=== PATIENT | male | born 1955 | race Caucasian/White ===

== ENCOUNTER 2025-08-13 16:20 | Emergency (ER) | payer MEDICARE, MEDICAID, SELFPAY ==
[2025-08-13] VITALS (11 sets, daily range): BP systolic 92–126; BP diastolic 57–87; PULSE 83–150; RESP 18–26; TEMP 36.5–36.6; O2SAT 90–96; BMI 29.7
--- NOTE | 2025-08-13 16:31 | XR_ITS ---
Examination: CT cervical spine without contrast 2-D sagittal reconstructions 2-D coronal reconstructions 3-D reconstructions. Exam date and time: August 13, 2025, 1758 hours INDICATIONS: Ground-level fall today with injury to the neck, neck pain CTDI:vol (mGy) 70.1 DLP: (mGycm) 387 Technique: Multiple 2 mm axial sections of the cervical spine have been obtained. The coronal and sagittal reconstructions have been obtained. 3-D reconstructions have been obtained. Low dose protocols were performed. One or more of the following dose reduction techniques were used; automated exposure control, adjustment of the mA and/or KV according to patient size, use of iterative reconstruction technique. Findings: Axial sections demonstrate intact base of the skull. C1 exhibit satisfactory relationship to the odontoid. No acute cervical vertebral body fracture seen. Alignment posterior spinous processes satisfactory. Impression: No acute cervical fracture.
--- NOTE | 2025-08-13 16:31 | XR_ITS ---
EXAMINATION: AP chest single view TECHNIQUE: AP portable semiupright chest single view Date and time: August 13, 2025, 1702 hours INDICATIONS: Chest pain shortness of breath beginning today. FINDINGS: Mild heart failure Mild to moderate enlargement left ventricle. Prominent vascular congestion with early perihilar basilar edema. Mild osteopenia. Advanced right glenohumeral joint osteoarthritis IMPRESSION: Mild heart failure
--- NOTE | 2025-08-13 16:31 | EKG_ITS ---
[facility] Test Date: 2025-08-13 Pat Name: ADELINA GAMEZ Department: Room: - Gender: Male Park Services Specialist: : 1955 Requested By: Yuval Croft Order Number: [id number] Reading MD: Yuval Croft Measurements Intervals [place] Rate: 150 P: [place]: QRS: 45 QRSD: 165 T: -52 QT: 306 QTc: 483 Interpretive Statements ATRIAL FLUTTER/TACHYCARDIA WITH RAPID VENTRICULAR RESPONSE RIGHT BUNDLE BRANCH BLOCK [120+ ms QRS DURATION, UPRIGHT V1, 40+ ms S IN I/aVL/V4/V5/V6] SEPTAL MYOCARDIAL INFARCTION , OF INDETERMINATE AGE [40+ ms Q WAVE IN V1/V2] ST ELEVATION, CONSIDER ANTERIOR INJURY [MARKED ST ELEVATION W/O NORMALLY INFLECTED T-WAVE IN V2-V5] ACUTE [place] Compared to ECG 08/04/2022 19:26:52 Right bundle-branch block now present Myocardial infarct finding now present ST (T wave) deviation now present Sinus rhythm no longer present /store/S0/[id number].pdf
--- NOTE | 2025-08-13 16:31 | XR_ITS ---
Examination: CT brain head without contrast. 2-D sagittal coronal reconstructions Date and time of exam: August 13, 2025, 1758 hours INDICATIONS: Ground-level fall today with injury to the head, head pain CTDI: vol (mGy): 58.7 DLP: (mGycm): 1268 Technique: Multiple CT axial sections of the brain have been obtained, 5 mm slice thickness. Contrast has not been administered. 2-D sagittal, coronal reconstructions have been obtained Low dose protocols were performed. One or more of the following dose reduction techniques were used; automated exposure control, adjustment of the mA and/or KV according to patient size, use of iterative reconstruction technique. Findings: Small areas of subarachnoid hemorrhage right frontal sulci, axial image 10-14, coronal image 30. No ventricular hemorrhage. Ventricles are normal in size Fourth ventricle midline Cranial vault intact IMPRESSION: Small areas of subarachnoid hemorrhage right frontal sulci Recommend close clinical observation and consider repeat CT brain scan in the a.m.
--- NOTE | 2025-08-13 16:44 | PC.NURSE ---
MISHEL FROM HOME FOR COLLAR BONE PAIN, FROM A FALL A FEW DAYS AGO, PER PT HE WAS GETTING OFF BED AND TRIPPED ON SOMETHING. WHILE IN AMBULANCE BAY PROVIDER NOTICED PT IS ADawnFIB RVR. IV PLACED, EKG OBTAINED, WILL CONT W/POC
--- NOTE | 2025-08-13 16:49 | PD.EDADULT ---
ED General RME/HPI General Chief complaint: Extremity Injury, Upper Stated complaint: COLLAR BONE PAIN Time Seen by Provider: 08/13/25 16:30 Arrival date/time: 08/13/25 16:20 CC: Left shoulder chest pain HPI onset after a ground-level fall 3 days ago. Patient said he cannot get comfortable anymore and then starting this morning began to feel crappy . The patient has no energy denies any additional chest pain shortness of breath or difficulty breathing. EMS report accelerated heart rhythm otherwise stable blood pressure patient denies nausea difficulty breathing. Patient takes no medications has no allergies smokes a pack of cigarettes a day does not drink alcohol uses marijuana occasionally. Related Data Home Medications ?Medication ?Instructions ?Recorded ?Confirmed No Known Home Medications 09/25/22 09/25/22 Allergies Allergy/AdvReac Type Severity Reaction Status Date / Time No Known Allergies Allergy Verified 08/13/25 16:41 Review of Systems Review of Systems Narrative Review of Systems: GEN: No fever, no chills, no weight loss EYES: No discharge, no visual changes, no pain HEENT: No ear pain, no congestion, no sore throat PULM: No shortness of breath, no cough, no congestion CV: + chest pain, no dyspnea on exertion, no palpitations GI: No nausea, no vomiting, no diarrhea, no pain, no constipation : No frequency, no urgency, no dysuria MUSC/SKEL: No joint pain, no back pain SKIN: No rash PSYCH: No hallucinations, no depression HEME/LYMPH: No easy bleeding or bruising tendencies NEURO: No weakness, no headache Past Medical History Past Medical History NEUROLOGIC: Negative Neurological Disorders or Seizures CARDIAC: Positive Cellulitis (FOR I&D OF RIGHT KNEE REDDENED AND SWOLLEN); Negative Cardiac Disorders, Congestive Heart Failure or Edema RESPIRATORY: Negative Chronic Obstructive Pulmonary Disease (COPD), Tuberculosis, Pulmonary Embolism or Sleep Apnea GASTROINTESTINAL: Negative Gastrointestinal Disorders or Hepatitis GENITOURINARY: Negative Genitourinary Disorders or Renal Disease MUSCULOSKELETAL: Positive Musculoskeletal Disorders and Arthritis ENDOCRINE: Negative Endocrine Disorders, Diabetes Mellitus Type 1 or Diabetes Mellitus Type 2 HEMATOLOGIC: Negative Blood Disorders OTHER HISTORY: Negative Hospitalization, Autoimmune Disease, Shingles, Falls, Blood Transfusions, Blood Transfusion Reaction, Anesthesia Reactions, Chemotherapy, Radiation Therapy, MRSA, Chicken Pox, Measles, Mumps or Cancer Family History FAMILY HISTORY: Positive Family Respiratory Disorders (BROTHER (COPD)) and Family Surgery (BROTHER); Negative Family Psychiatric Problems, Family Cardiac Disorders, Family Gastrointestinal Problems, Family Cancer or Family Anesthesia Reaction Surgical History SURGICAL: Negative Pacemaker Social History SMOKING STATUS: Current every day smoker ED Exam Narrative Physical exam: [General: Moderate discomfort not in any acute distress Head normocephalic no step-offs hematomas, no depressions. HEENT: Eyes pupils are PERRLA EOMs are intact mouth [place] dry membranes uvula is midline swallow symmetrical phonation is normal. No raccoon's eyes or Melchor sign. No facial asymmetry or bogginess. No rhinorrhea or otorrhea. Neck is supple nontender, no JVD no edema Chest equal chest rise nontender to palpation Respiratory: Clear to auscultation no wheezes crackles or rubs CV: Rate rhythm is irregular, accelerated, no murmurs rubs or clicks Abdomen is distended secondary to body habitus soft nontender no masses positive bowel sounds all 4 quadrants Back: No CVA tenderness no spinous process tenderness from cervical spine thoracic and lumbar spine Skin: Intact no petechiae rash induration ulceration or crepitus Extremities: Moving all extremity against resistance cap refill less than 2 seconds neurosensory intact Neuro: Awake alert oriented x3 Glascow coma 15 no focal deficits] Course Course Course Narrative: Patient's case discussed with Dr. Ann Orr who agrees to accept in consult for cardiology requesting a heparin drip once the patient has been cleared. CT of the head shows small subarachnoid hemorrhage in the right frontal sulci. Discussed with the patient he is agreeable to transfer for neurosurgical services, will not start the heparin drip. Note: The patient states he did did not hit his head at the time of the fall. Patient declined from [facility] neurosurgical services for admission. Patient accepted at [facility] by Dr. Phillips. Reassessment of the patient at 2045 shows the patient has had no deterioration in neurologic status is awake alert oriented minimal left shoulder pain. Heart rate is manage between 90 and 110 pressures remain soft in the 90-100 systolic. Patient has no other additional complaints. Quality Measures none Orders Category Date Time Status EKG (ED ONLY) *Do not use* NOW Care 08/13/25 16:31 Completed EKG (ED ONLY) *Do not use* NOW Care 08/13/25 17:07 Completed EKG (ED ONLY) *Do not use* NOW Care 08/13/25 18:46 Completed Notify provider NOW Care 08/13/25 17:33 Completed Consult to Cardiology Stat Cons 08/13/25 17:32 Ordered Transfer to another facility [Transfer/Discharge] Stat Discharge 08/13/25 20:48 Active CA echo doppler complete Stat Exams 08/13/25 18:[address] cervical spine wo con Stat Exams 08/13/25 16:[address] head/brain wo con Stat Exams 08/13/25 16:31 Completed EKG (ED Only) Stat Exams 08/13/25 16:31 Draft EKG (ED Only) Stat Exams 08/13/25 17:07 Draft EKG (ED Only) Stat Exams 08/13/25 18:46 Ordered XR chest 1V Stat Exams 08/13/25 16:31 Completed B-Type Natriuretic Peptide Stat Lab 08/13/25 16:40 Completed CBC Stat Lab 08/13/25 16:40 Completed Comprehensive Metabolic Panel Stat Lab 08/13/25 16:40 Completed Drug Screen,Urine Stat Lab 08/13/25 20:51 Completed LDH (Lactate Dehydrogenase) Stat Lab 08/13/25 16:40 Completed Magnesium Stat Lab 08/13/25 16:40 Completed Partial Thromboplastin Time Stat Lab 08/13/25 16:40 Completed Prothrombin Time with INR Stat Lab 08/13/25 16:40 Completed Troponin I Stat Lab 08/13/25 16:40 Completed Urinalysis, C/S if Indicated Stat Lab 08/13/25 20:36 Completed Urine Culture Stat Lab 08/13/25 20:36 Received Aspirin Chew Med 08/13/25 17:23 Discontinued 324 mg PO X1 ONE DILTIAZEM in NS 100 MG Med 08/13/25 16:41 Discontinued 100 mg in 100 ml IV 5 mg/hr Diltiazem Inj [Cardizem Inj] Med 08/13/25 18:26 Discontinued 20 mg IV X1 ONE Diltiazem Inj [Cardizem Inj] Med 08/13/25 16:41 Discontinued 25 mg IV X1 ONE Morphine* Inj Med 08/13/25 17:07 Discontinued 4 mg IVP X1 ONE Ondansetron Inj [Zofran Inj] Med 08/13/25 17:07 Discontinued 4 mg IVP X1 ONE Sodium Chloride 0.9% 1000 ml [Ns] 1,000 ml Med 08/13/25 17:09 Discontinued IV 999 mls/hr cefTRIAXone/D5w 1gm IV premix [Rocephin/D5w 1gm IV Med 08/13/25 17:46 Discontinued premix] 1 gm in 50 ml IV X1 Vital Signs Vital signs: Vital Signs Temperature 97.9 F 08/13/25 16:24 Pulse Rate 150 H 08/13/25 16:24 Respiratory Rate 18 08/13/25 16:24 Blood Pressure 121/85 H 08/13/25 16:24 Pulse Oximetry (%) 94 L 08/13/25 16:24 Oxygen Delivery Method Room Air 08/13/25 16:24 Discharge Plan Plan Patient Disposition: Admit Acute Care w/in Hospital Patient condition on transfer: Stable Prescriptions/Referrals Prescriptions/Med Rec: No Action No Known Home Medications Referrals: No Primary/Family,Physician [Primary Care Provider] - In 1 week Problem List Clinical Impression: Subarachnoid hemorrhage, Atrial flutter with rapid ventricular response, Elevated troponin, Thrombocytopenia, Elevated INR Patient/Caregiver Discharge Instructions Print Language: Mexican Stand Alone Forms: [employer] Award Info., Patient Portal Info Letter MDM Clinical Information Provided by: patient and EMS Medical Records reviewed [facility] and EMS Meds/Rx considered, not ordered None Labs/Rad/Tests considered, not ordered None Chronic Illness/Social Conditions Explain: No meds no allergies not been seen by a doctor in some time . Last admission was 2021 for septic arthritis. Patient continues to follow-up with Dr. Rudd EKG Interpretation EKG #1: EKG Interpretation: EKG performed at 1636 shows a ventricular rate of 150 with a QRS of 165 QTc of 391 this is a fib RVR right bundle branch block. Questionable ST segment elevations in lateral leads. Labs Labs: interpreted by nj Lab(s) Interpretation(s): CBC shows leukocytosis of 15.7 hemoglobin of 16.8 hematocrit of 48.0 platelets of 65 PT of 17.2 INR 1.7 PTT of 34.7 Sodium 135 CO2 of 16.5 BUN of 54 creatinine 1.3 glucose of 136 no other electrolyte imbalances or renal impairment T. bili at 2.4 AST 127 ALT 51 alk phos at 109 LDH of 411 Troponin at 8.258 BNP at 841 Imaging Imaging interpretation: interpreted by nj Imaging Interpretation(s): Check x-ray questionable pneumonia. CT of the head shows small subarachnoid hemorrhage in the right frontal sulcus I CT C-spine is negative. Medication Administration(s) Medication Administration History Discontinued Medications Aspirin (Aspirin 81 Mg Chew) 324 mg PO X1 ONE Stop: 08/13/25 17:24 Last Admin: 08/13/25 17:33 Dose: 324 mg Documented By: TM Diltiazem HCl (Diltiazem Inj 5 Mg/Ml Vial 5 Ml) 25 mg IV X1 ONE Stop: 08/13/25 16:42 Last Admin: 08/13/25 16:52 Dose: 25 mg Documented By: TM Diltiazem HCl (Diltiazem Inj 5 Mg/Ml Vial 5 Ml) 20 mg IV X1 ONE Stop: 08/13/25 18:27 Last Admin: 08/13/25 18:39 Dose: 20 mg Documented By: TM Diltiazem/Sodium Chloride (Diltiazem In Ns 100 Mg) 100 mg in 100 mls @ 5 mls/hr IV .Q20H IESHA; Protocol Stop: 09/12/25 16:40 Last Titration: 08/13/25 20:40 Dose: 15 mg/hr, 15 mls/hr Documented By: Titration: 08/13/25 19:27 Dose: 15 mg/hr, 15 mls/hr Documented By: Titration: 08/13/25 17:54 Dose: 15 mg/hr, 15 mls/hr Documented By: Titration: 08/13/25 17:39 Dose: 15 mg/hr, 15 mls/hr Documented By: Titration: 08/13/25 17:24 Dose: 15 mg/hr, 15 mls/hr Documented By: Titration: 08/13/25 17:09 Dose: 10 mg/hr, 10 mls/hr Documented By: Admin: 08/13/25 16:54 Dose: 5 mg/hr, 5 mls/hr Documented By: TM Sodium Chloride (Ns) 1,000 mls @ 999 mls/hr IV .Q1H1M ONE Stop: 08/13/25 18:09 Last Infusion: 08/13/25 18:10 Dose: Infused Documented By: Admin: 08/13/25 17:09 Dose: 999 mls/hr Documented By: TM Ceftriaxone Sodium/Dextrose (Rocephin/D5w 1gm Iv Premix) 1 gm in 50 mls @ 100 mls/hr IV X1 ONE Stop: 08/13/25 18:15 Last Infusion: 08/13/25 18:41 Dose: Infused Documented By: Admin: 08/13/25 18:11 Dose: 100 mls/hr Documented By: TM Morphine Sulfate (Morphine Sulf Inj 4 Mg/Ml Vial) 4 mg IVP X1 ONE Stop: 08/13/25 17:08 Last Admin: 08/13/25 17:32 Dose: 4 mg Documented By: TM Ondansetron HCl (Ondansetron Inj 2 Mg/Ml Inj 2 Ml) 4 mg IVP X1 ONE; Protocol Stop: 08/13/25 17:08 Last Admin: 08/13/25 17:32 Dose: 4 mg Documented By: TM Diagnosis Differential Diagnosis ED Complaint MDM: ACS [place] pneumonia subarachnoid hemorrhage
[2025-08-13] MEDS: DILTIAZEM INJ 5 MG/ML VIAL 5 ML 25 MG IV (16:52)
[2025-08-13] MEDS: DILTIAZEM in NS 100 MG 100 MG/100 ML BAG IV (16:54)
[2025-08-13 16:59] LABS: Basophils # (Auto) 0.0 Thou/mm3 (0.0-0.2); Basophils % (Auto) 0 % (0-2.5); Eosinophils # (Auto) 0.0 Thou/mm3 (0.0-0.5); Eosinophils % (Auto) 0 % (0-10); Hematocrit 48.0 % (41.0-53.0); Hemoglobin 16.8 g/dL (13.5-16.0); Immature Granulocytes Auto 0.79 Thou/mm3 (0.00-0.00); Lymphocytes # (Auto) 0.5 Thou/mm3 (1.0-4.8); Lymphocytes % (Auto) 3 % (10-50); Mean Corpuscular HGB Conc 35.0 g/dl (31.0-37.0); Mean Corpuscular Hemoglobin 31.0 pg (25.0-35.0); Mean Corpuscular Volume 89 fL (80-100); Monocytes # (Auto) 1.1 Thou/mm3 (0.0-0.8); Monocytes % (Auto) 7 % (0-12); Neutrophils # (Auto) 13.3 Thou/mm3 (1.8-7.7); Neutrophils % (Auto) 85 % (37-80); Nucleated Red Blood Cell # 0.00 Thou/mm3 (0.00-0.00); Nucleated Red Blood Cell % 0 /100 WBC (0); RDW Standard Deviation 52.2 fL (35.1-43.9); Red Blood Count 5.42 Miln/mm3 (4.50-5.90); White Blood Count 15.7 Thou/mm3 (3.8-10.6)
[2025-08-13 17:05] LABS: Platelet Count 65 Thou/mm3 (140-440)
--- NOTE | 2025-08-13 17:07 | EKG_ITS ---
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1955 Requested By: Yuval Croft Order Number: [id number] Reading MD: Yuval Croft Measurements Intervals [place] Rate: 93 P: [place]: QRS: -12 QRSD: 161 T: -69 QT: 356 QTc: 443 Interpretive Statements ATRIAL FLUTTER/TACHYCARDIA INDETERMINATE AXIS RIGHT BUNDLE BRANCH BLOCK [120+ ms QRS DURATION, UPRIGHT V1, 40+ ms S IN I/aVL/V4/V5/V6] SEPTAL MYOCARDIAL INFARCTION , PROBABLY OLD [40+ ms Q WAVE IN V1/V2] MODERATE T-WAVE ABNORMALITY, CONSIDER INFERIOR ISCHEMIA [-0.1+ mV T-WAVE IN II/aVF] Compared to ECG 08/13/2025 16:36:19 Indeterminate axis now present T-wave abnormality now present Possible ischemia now present ST (T wave) deviation no longer present Myocardial infarct finding still present /store/S0/[id number]/[id number].pdf
[2025-08-13] MEDS: SODIUM CHLORIDE 0.9% 1000 ML 1,000 ML 999 ML IV (17:09)
[2025-08-13 17:10] LABS: INR 1.7 (0.9-1.3); Partial Thromboplastin Time 34.7 Seconds (22.0-36.0); Prothrombin Time 17.2 Seconds (9.0-12.2)
--- NOTE | 2025-08-13 17:13 | PC.NURSE ---
provider Ordonez at bedside gave verbal to keep SBP >90 when increasing/titrating dilt gtt
[2025-08-13 17:17] LABS: Alanine Aminotransferase 51 U/L (10-49); Albumin, Serum 3.5 gm/dL (3.4-4.8); Albumin/Globulin Ratio 1.0 (1.2-2.2); Alkaline Phosphatase 109 U/L (46-116); Anion Gap 16 (7-16); Aspartate Amino Transferase 127 U/L (0-34); BUN/Creatinine Ratio 42 Ratio (12-20); Bilirubin,Total 2.4 mg/dL (0.3-1.2); Blood Urea Nitrogen 54 mg/dL (9-23); Calcium 8.3 mg/dL (8.3-10.6); Calcium (Corrected) 8.7 mg/dL (8.5-10.1); Carbon Dioxide 16.5 mMol/L (20.0-31.0); Chloride 103 mMol/L (98-107); Creatinine (Component) 1.3 mg/dL (0.6-1.3); Estimated Creatinine Clearance 66.4 mL/min (>60); Globulin 3.4 gm/dL (2.3-3.5); Glucose 136 mg/dL (74-106); LDH (Lactate Dehydrogenase) 411 U/L (120-246); Magnesium 2.2 mg/dL (1.6-2.6); Osmolality,Calculated 286 (275-295); Potassium 3.8 mMol/L (3.4-5.1); Sodium 135 mMol/L (136-145); Total Protein 6.9 gm/dL (5.7-8.2); eGFR 59 See Note
[2025-08-13 17:18] LABS: Slide Review Platelets confirmed
[2025-08-13 17:21] LABS: Troponin I 8.258 ng/mL (0.0-0.045)
[2025-08-13 17:22] LABS: Band Neutrophils (Manual) 32 % (0-6); Lymphocytes (Manual) 5 % (20-44); Metamyelocytes (Manual) 2 % (0-0); Monocytes (Manual) 3 % (2-9); Neutrophils (Manual) 58 % (50-70)
[2025-08-13 17:28] LABS: B-Type Natriuretic Peptide 841 pg/mL (0-100)
[2025-08-13] MEDS: MORPHINE SULF INJ 4 MG/ML VIAL IVP (17:32)
[2025-08-13] MEDS: ONDANSETRON INJ 2 MG/ML INJ 2 ML 4 MG IVP (17:32)
[2025-08-13] MEDS: ASPIRIN 81 MG CHEW 324 MG PO (17:33)
[2025-08-13] MEDS: cefTRIAXone/D5w 1gm IV premix 1 GM/50 ML BAG IV (18:11)
[2025-08-13] MEDS: DILTIAZEM INJ 5 MG/ML VIAL 5 ML 20 MG IV (18:39)
--- NOTE | 2025-08-13 18:46 | EKG_ITS ---
[facility] Test Date: 2025-08-13 Pat Name: ADELINA GAEMZ Department: Room: - Gender: Male Customer Consultant: : 1955 Requested By: Yuval Croft Order Number: [id number] Reading MD: Yuval Croft Measurements Intervals [place] Rate: 124 P: [place]: QRS: 17 QRSD: 170 T: -49 QT: 352 QTc: 507 Interpretive Statements ATRIAL FLUTTER/TACHYCARDIA WITH RAPID VENTRICULAR RESPONSE RIGHT BUNDLE BRANCH BLOCK [120+ ms QRS DURATION, UPRIGHT V1, 40+ ms S IN I/aVL/V4/V5/V6] SEPTAL MYOCARDIAL INFARCTION , OF INDETERMINATE AGE [40+ ms Q WAVE IN V1/V2] MODERATE T-WAVE ABNORMALITY, CONSIDER INFERIOR ISCHEMIA [-0.1+ mV T-WAVE IN II/aVF] Compared to ECG 08/13/2025 16:36:19 T-wave abnormality now present Possible ischemia now present ST (T wave) deviation no longer present Myocardial infarct finding still present /store/S0/[id number]/ecg/[id number].pdf
--- NOTE | 2025-08-13 19:03 | PD.RESCONSUL ---
HPI Data of Consult Patient: new to practice Consult date: 08/13/25 Primary Care Provider: Physician No Primary/Family Consult Narrative Reason for consult: Afib with RVR and elevated troponins History of present illness: Patient is a 70-year-old male with past medical history of right knee surgery, tobacco use, marijuana use, hep C who presents to the ED on 08/13/2025 for worsening left clavicular pain after fall at home 3 days ago. Describes pain as sharp, worse when he moves, and constant over the past couple of days. Patient denies chest pain, shortness of breath, or palpitations. Denies any personal or family cardiac history. Denies any history of hypertension or hyperlipidemia. Denies any prior similar previous episodes of pain. Reports that he has been well-hydrated, has been drinking Pedialyte as well. Does not follow with a PCP, last saw PCP at [facility], Dr. Paz. Does not take any medications. In ED, BP 121/85, HR 150, patient was afebrile. Saturating 94% on room air. WBC 15.7, hemoglobin 16.8, platelets 65. PT 17.2, INR 1.7, PTT 34.7. Sodium 135, potassium 3.8, bicarb 16.5, BUN 54, creatinine 1.3, magnesium 2.2, total bili 2.4, AST 127, ALT 51. LDH 411, troponin 8.258, BNP 841. Pending UTOX. EKG showed atrial flutter with RVR, as well as right bundle branch block. HR 150. Repeat EKG shows atrial flutter with HR improved to [address] cervical spine negative.Chest x-ray shows mild heart failure with mild to moderate enlargement of left ventricle and pulmonary vascular congestion with early perihilar basilar edema. CT head shows small area of subarachnoid hemorrhage in right frontal sulci. Cardiology was consulted for atrial flutter with RVR. Past Medical History: As above Family History: No known family history of cardiac disease. Surgical History: Right knee surgery and September 2022. Social History: Smokes 1 pack/day for the past 50 years, drinks of beer every 2 to 3 months with a past 50 years. Smoked marijuana daily for the past 50 years. Denies any other illicit drug use. Current Medications: Does not take any medications Allergies: No known drug allergies cc:: cc: Exam Vital Signs Temp Pulse Resp BP Pulse Ox O2 Del Method O2 Flow Rate 97.9 F 144 H 21 H 101/64 91 L Nasal Cannula 4 08/13/25 16:24 08/13/25 18:39 08/13/25 17:54 08/13/25 18:39 08/13/25 17:54 08/13/25 17:24 08/13/25 17:54 Narrative Exam Physical Exam General: Awake and in no acute distress. Conversational and non-toxic appearing. Obese, conversational elderly male. HEENT: Normocephalic, atraumatic, mucous membranes moist. Small red nodule on left lower lip. Heart: Tachycardic. Regular rate and rhythm, normal S1 and S2. Difficult to appreciate murmur due to diffuse pulmonary crackles. Lungs: Diffuse crackles in upper and lower lobes bilaterally. Abdomen: Soft, nondistended, nontender, positive bowel sounds. No guarding or rebound tenderness. Neurologic: Alert and oriented x3, no gross neurological deficit, and patient able to move all 4 extremities. Extremities: No edema. Skin: No rash or ecchymoses. Results Labs 08/13/25 16:40 08/13/25 16:40 Labs: Short CBC 08/13/25 Range/Units 16:40 WBC 15.7 H (3.8-10.6) Thou/mm3 Hgb 16.8 H (13.5-16.0) g/dL Hct 48.0 (41.0-53.0) % Plt Count 65 L (140-440) Thou/mm3 BMP 08/13/25 16:40 Sodium 135 L Potassium 3.8 Chloride 103 Carbon Dioxide 16.5 L BUN 54 H Creatinine 1.3 Glucose 136 H Calcium 8.3 Cardiac Enzymes 08/13/25 Range/Units 16:40 Troponin I 8.258 H* (0.0-0.045) ng/mL Liver Function 08/13/25 Range/Units 16:40 Total Bilirubin 2.4 H (0.3-1.2) mg/dL AST 127 H (0-34) U/L ALT 51 H (10-49) U/L Alkaline Phosphatase 109 (46-116) U/L Albumin 3.5 (3.4-4.8) gm/dL Quality Measures Quality Measures VTE prophylaxis Advance care planning discussed with:: patient Medications Home Medications and Allergies Home Medications ?Medication ?Instructions ?Recorded ?Confirmed ?Type No Known Home Medications 09/25/22 09/25/22 History Allergies Allergy/AdvReac Type Severity Reaction Status Date / Time No Known Allergies Allergy Verified 08/13/25 16:41 Visit Medications Diltiazem/Sodium Chloride (Diltiazem In Ns 100 Mg) 100 mg in 100 mls @ 5 mls/hr IV .Q20H IESHA; Protocol Stop: 09/12/25 16:40 Last Titration: 08/13/25 17:54 Dose: 15 mg/hr, 15 mls/hr Discontinued Medications Aspirin (Aspirin 81 Mg Chew) 324 mg PO X1 ONE Stop: 08/13/25 17:24 Last Admin: 08/13/25 17:33 Dose: 324 mg Diltiazem HCl (Diltiazem Inj 5 Mg/Ml Vial 5 Ml) 25 mg IV X1 ONE Stop: 08/13/25 16:42 Last Admin: 08/13/25 16:52 Dose: 25 mg Diltiazem HCl (Diltiazem Inj 5 Mg/Ml Vial 5 Ml) 20 mg IV X1 ONE Stop: 08/13/25 18:27 Last Admin: 08/13/25 18:39 Dose: 20 mg Sodium Chloride (Ns) 1,000 mls @ 999 mls/hr IV .Q1H1M ONE Stop: 08/13/25 18:09 Last Admin: 08/13/25 17:09 Dose: 999 mls/hr Ceftriaxone Sodium/Dextrose (Rocephin/D5w 1gm Iv Premix) 1 gm in 50 mls @ 100 mls/hr IV X1 ONE Stop: 08/13/25 18:15 Last Admin: 08/13/25 18:11 Dose: 100 mls/hr Morphine Sulfate (Morphine Sulf Inj 4 Mg/Ml Vial) 4 mg IVP X1 ONE Stop: 08/13/25 17:08 Last Admin: 08/13/25 17:32 Dose: 4 mg Ondansetron HCl (Ondansetron Inj 2 Mg/Ml Inj 2 Ml) 4 mg IVP X1 ONE; Protocol Stop: 08/13/25 17:08 Last Admin: 08/13/25 17:32 Dose: 4 mg Assessment & Plan Plan Patient is a 70-year-old male with past medical history of right knee surgery, tobacco use, marijuana use, hep C who presents to the ED on 08/13/2025 for worsening left clavicular pain after ground level fall at home 3 days ago, found to be in atrial flutter with RVR on EKG as well as small subarachnoid hemorrhages on CT head. #Atrial flutter with RVR Denies palpitations, lightheadedness, or dizziness on presentation. Denies any recent sick contacts. Denies history of atrial fibrillation or arrhythmias. Never seen a english professor. Previous EKGs in 2021 showed sinus tachycardia with occasional PVCs. Possibly triggered by infection (of unknown source) versus drug/toxin versus GLF. Of note, patient has many risk factors including chronic tobacco, alcohol, and marijuana use, as well as poor medical follow up. In ED, BP 121/85, HR 150. EKG showed atrial flutter with RVR, HR 150, with RBBB. Given dilt 25 mg x 1, started on IV Dilt drip. Heart rate initially dropped to 120 but increased back to 140s, given another Dilt 20 mg IV x 1.Review of EKG shows atrial flutter, HR 93. Plan: ?Recommend to continue IV diltiazem as BP permits, may transition to IV amiodarone if heart rate is unable to be controlled -Do not recommend heparin drip at this time as patient has subarachnoid hemorrhage and thrombocytopenia. -Keep Magnesium > 2 and Potassium >4 -Pending urine toxicology. #Left clavicular pain #Elevated troponins #NSTEMI type 1 versus 2 #Moderate aortic stenosis #Mild CHF Presenting with worsening left clavicular pain after ground-level fall 3 days ago. Radiates to top of left humerus and partially up his neck. Denies personal cardiac history. Troponin 8.258. BNP 841. Chest x-ray shows mild heart failure with mild to moderate enlargement of left ventricle and pulmonary vascular congestion with early perihilar basilar edema. Echo 08/04/22 showed Normal left ventricular size wall motion. LVEF 55%. normal cardiac chamber size and function Moderate calcific aortic valve stenosis. Vmax 314cm/s. Mean PG 26mmHg. trace to mild mitral valve regurgitation. Plan: - Continue to trend troponins every 6 hours until downtrend is noted. - Do not recommend heparin drip at this time as patient has subarachnoid hemorrhage and thrombocytopenia. - Recommend aspirin 81 mg once daily and high intensity statin. - Beta lucio if hemodynamically stable. Oxygen as needed and pain control with morphine if needed. - Echo ordered to rule out any regional wall motion abnormalities, evaluate LV function, RV function, diastolic function and any valvular abnormalities. - Check TSH A1c and lipid profile for further cardiac risk stratification. #Subarachnoid hemorrhage, small areas in right frontal sulci S/p GLF. Found on CT head. - Avoid anticoagulation - Recommend to consult neurology before starting anticoagulation. #Thrombocytopenia #Transaminitis #Hx alcohol use #Hx hep C Platelets 65,000, previously 200,000 in 2021. Also presents with AST 127, ALT 51. Possibly secondary to chronic alcohol use or history of untreated hep C. - Avoid anticoagulation as above - Recommend further work up by primary team #MARCELINO BUN 54, creatinine 1.3 (baseline 0.6-0.7). Patient reports that he is adequately hydrated, has even been drinking Pedialyte. GFR 59. Less likely prerenal as patient appears more volume overloaded (diffuse crackles on auscultation. elevated BNP, and CXR results) - Avoid nephrotoxic agents #Leukocytosis- infectious versus reactive, started on abx in ED #Hyperbilirubinemia #Polycythemia- Possibly secondary to chronic tobacco use. #Hx tobacco use- Patient is not open to cessation at this time. Thank you for your consultation, please do not hesitate to reach out if you have any question or concern Patient plan of care was discussed with the attending physician, Dr. Gomez. Tesha Veloz DO, PGY-1 Attending Provider Attestation/Addendum I have personally seen and examined the patient separately on the above date of service and discussed the plan of care with the resident. I reviewed the resident Dr. Tesha Veloz consultation progress note and agree with the resident findings and plan in the note above and have also edited the documentation to reflect my findings and plan. Julito Gomez M.D. Interventional Cardiology
--- NOTE | 2025-08-13 20:04 | PC.NURSE ---
[facility] CONTACTED DECLINED PT NEEDS HLC. [facility] CONTACTED [facility] PT NEEDS TRAUMA. [facility] CONTACTED [facility] SENT IMAGES PUSHED. DAVID LAU SPEAKING WITH TRN.
--- NOTE | 2025-08-13 20:52 | PC.NURSE ---
CONTACTED [facility] FOR [facility]IBLE AIR TRANSPORT TO [facility] AND THEY ACCEPTED WITH A 30MIN ETA FOR BEDSIDE
[2025-08-13 20:56] LABS: Collection Type, Urine Clean Catch; Squamous Epithelial Cell,Urine 0 /hpf (0-5)
--- NOTE | 2025-08-13 21:09 | PC.NURSE ---
PT ACCEPTED TO [facility] BY DR FLORES, REPORT TO [phone]. [facility] CONTACTED AND HAS AGREED TO TRANSPORT PT.
[2025-08-13 21:14] LABS: Amorphous Crystals,Urine Present (Absent); Bilirubin,Urine Negative (Negative); Blood,Urine 3+ (Negative); Clarity,Urine Turbid (Clear/Hazy); Color,Urine Yellow (Lt Yel-Yel); Glucose, Urine Negative (Negative); Hyaline Casts,Urine 1 /hpf (0-1); Ketones,Urine Trace (Negative); Leukocyte Esterase,Urine Positive (Negative); Nitrite,Urine Negative (Negative); PH,Urine 6.0 (5.0-7.0); Protein,Urine 1+ (Neg - Trace); RBC,Urine 463 /hpf (0-3); Specific Gravity,Urine 1.021 (1.001-1.035); Urobilinogen,Urine 4.0 mg/dL (0.0-1.0); WBC,Urine 27 /hpf (0-5)
[2025-08-13 21:15] LABS: Culture Indicated,Urine Yes
[2025-08-13 21:17] LABS: Amphetamine/Methamp Scrn,U Negative (Negative); Barbiturate Screen,Urine Negative (Negative); Benzodiazepines Screen,Urine Negative (Negative); Benzoylecgonine Screen, Ur Negative (Negative); Fentanyl Screen,Urine Negative (Negative); Opiate Screen,Urine Positive (Negative); THC Screen,Urine Positive (Negative)
--- NOTE | 2025-08-13 21:40 | PC.NURSE ---
report called and given to triage nurse mihir at [facility]
== END 2025-08-13 21:49 | disposition admitted as inpatient to this hospital (09) ==
PROVIDERS: Registered Nurse General Practice; Emergency Provider Emergency Medicine
DX: R79.1 Abnormal coagulation profile (principal); D69.6 Thrombocytopenia, unspecified; I50.9 Heart failure, unspecified; I48.92 Unspecified atrial flutter; I60.9 Nontraumatic subarachnoid hemorrhage, unspecified
CPT/HCPCS: 36415; 70450; 71045; 72125; 80053; 80307; 81001; 83615; 83735; 83880; 84484; 85025; 85610; 85730; 87077; 87086; 87186; 93005; J0696; J2270; J2405; J3490; J7030; A9270